=== PATIENT | male | born 1995 | race Caucasian/White ===

== ENCOUNTER 2017-07-24 12:06 | Emergency (ER) | payer OTHER ==
[2017-07-24] MEDS ORDERED: Ibuprofen TAB* 600 MG PO ONE (12:20)
[2017-07-24] MEDS ORDERED: HYDROcodone/ACETAMIN 5-325 MG* 1 TAB PO ONE (12:20)
--- NOTE | 2017-07-24 12:34 | RAD ---
HISTORY: Second finger pain, right hand COMPARISONS: None VIEWS: 3, Frontal, lateral, and oblique views of the second digit of the right hand FINDINGS: BONE DENSITY: Normal. BONES: There is no displaced fracture. JOINTS: There is no arthropathy. ALIGNMENT: There is dorsal and ulnar dislocation of the middle phalanx with respect to the proximal phalanx at the PIP joint SOFT TISSUES: Unremarkable. OTHER FINDINGS: None. IMPRESSION: SECOND PIP DISLOCATION
--- NOTE | 2017-07-24 12:40 | UC ---
Hand/Wrist HPI - HPI Summary HPI Summary: Patient was playing football, ran into another player and dislocated the PIP joint of the left index finger. 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 Time Seen by Provider: 07/24/17 12:17 Hx Obtained From: Patient ?: No Onset/Duration: Sudden Onset, Lasting Minutes Severity Initially: Severe Severity Currently: Severe Character Of Pain: Sharp, Throbbing Aggravating Factor(s): Movement Alleviating Factor(s): Nothing Associated Signs And Symptoms: Positive: Other - deformity - Allergies/Home Medications Allergies/Adverse Reactions: Allergies Allergy/AdvReac Type Severity Reaction Status Date / Time Pollen Extract Allergy Congestion Verified 07/24/17 12:42 PMH/Surg Hx/FS Hx/Imm Hx Previously Healthy: Yes - Surgical History Surgical History: None - Family History Known Family History: Positive: Hypertension Negative: Blood Disorder - no bleeding disorders - Social History Alcohol Use: None Substance Use Type: None Smoking Status (MU): Never Smoked Tobacco - Immunization History Most Recent Tetanus Shot: within 5 yrs Review of Systems Constitutional: Negative Skin: Bruising Eyes: Negative ENT: Negative Respiratory: Negative Cardiovascular: Negative Gastrointestinal: Negative Genitourinary: Negative Motor: Negative Neurovascular: Negative Musculoskeletal: Arthralgia, Decreased ROM Neurological: Negative Psychological: Negative Is Patient Immunocompromised?: No All Other Systems Reviewed And Are Negative: Yes Physical Exam Triage Information Reviewed: Yes Appearance: Well-Appearing, Well-Nourished, Pain Distress Vital Signs Reviewed: Yes Eye Exam: Normal ENT Exam: Normal Dental Exam: Normal Neck exam: Normal Neck: Positive: Supple, Nontender, No Lymphadenopathy Respiratory Exam: Normal Respiratory: Positive: Chest non-tender, Lungs clear, Normal breath sounds Cardiovascular Exam: Normal Cardiovascular: Positive: RRR, No Murmur, Pulses Normal Abdominal Exam: Normal Abdomen Description: Positive: Nontender, No Organomegaly, Soft Bowel Sounds: Positive: Present Musculoskeletal: Positive: Strength Limited @, ROM Limited @ - due to displacement Neurological Exam: Normal Neurological: Positive: Alert, Muscle Tone Normal Psychological Exam: Normal Skin Exam: Normal Hand/Wrist Course/Dx - Course Course Of Treatment: hx obtained, exam performed ,meds reviewed, xray obtained, reduction of dislocation performed, patient medicated, tolerated well, ice and splint applied - Differential Dx/Diagnosis Differential Diagnosis/HQI/PQRI: Dislocation, Fracture, Sprain, Strain Provider Diagnoses: dislocation of the left index finger PIP Discharge - Discharge Plan Condition: Stable Disposition: HOME Patient Education Materials: Finger Dislocation (ED) Referrals: Non Staff,Doctor [Primary Care Provider] - Additional Instructions: 1. rest, ice and elevate the finger for the next 48 hours 2. Continue with the ibuprofen for pain and swelling 3. wear splint for the next week and then only when doing activity until you have full ROm back. 4. If you develop any increase pain, numbness, or cold finger, follow up
[2017-07-24 12:42] VITALS: BP 135/74
== END 2017-07-24 12:58 | disposition home or self-care (01) ==
LOC: UCCORT 12:06
DX: S63.251A Unspecified dislocation of left index finger, initial encounter (principal); J30.1 Allergic rhinitis due to pollen; W51.XXXA Accidental striking against or bumped into by another person, initial encounter; Y93.61 Activity, american tackle football
CPT/HCPCS: 73140; 99212; A9270-GY; G0463